=== PATIENT | female | born 1955 | race Caucasian/White ===

== ENCOUNTER 2022-02-07 13:35 | Outpatient (CLI) | payer MEDICARE | END 2022-02-07 13:36 | disposition home or self-care (01) | LOC: CSHMAMMO 13:35 | PROVIDERS: ATTEND Family Medicine | DX: Z12.31 Encounter for screening mammogram for malignant neoplasm of breast (principal); Z98.890 Other specified postprocedural states | CPT/HCPCS: 77063; 77067 ==

== ENCOUNTER 2023-02-08 08:30 | Outpatient (CLI) | payer MEDICARE | END 2023-02-08 08:31 | disposition home or self-care (01) | LOC: CSHMAMMO 08:30 | PROVIDERS: ATTEND Family Medicine | DX: Z12.31 Encounter for screening mammogram for malignant neoplasm of breast (principal); Z98.82 Breast implant status | CPT/HCPCS: 77063; 77067 ==

== ENCOUNTER 2025-01-05 14:29 | Outpatient (CLI) | payer MEDICARE | END 2025-01-05 14:30 | disposition home or self-care (01) | LOC: CSHMAMMO 14:29 | PROVIDERS: ATTEND Nurse Practitioner Family | DX: N64.4 Mastodynia (principal) | CPT/HCPCS: 76642; 77066; G0279 ==